=== PATIENT | male | born 1960 | race Caucasian/White ===

== ENCOUNTER 2016-06-30 06:59 | Emergency (ER) | payer BC, OTHER ==
--- NOTE | 2016-06-30 08:35 | EDDOCDS ---
Physician Documentation [facility] Name: Christine Shea Age: 56 yrs Sex: Male : 1960 Arrival Date: 06/30/2016 Time: 06:59 Bed I3 / M3 Private MD: Disposition: 06/30/16 08:25 Discharged to Home/Self Care. Impression: Postprocedural urethral stricture, male, Intraoperative and postprocedural complications and disorders of genitourinary system, not elsewhere classified. - Condition is Stable. - Discharge Instructions: Dysuria. - Medication Reconciliation, Local Pharmacy Hours form. - Follow up: [facility] Urology - [facility] clinic; When: As soon as possible; Reason: Worsening of conditions. - Problem is new. - Symptoms are unchanged. Historical: - Allergies: SULFA (SULFONAMIDES); Codeine Sulfate; ''Adhesives''; - Home Meds: 1. Lopressor 50 mg Oral tab once daily (Last dose: 06/29/2016 19:00) 2. nitroglycerin 0.4 mg SL subl 1 tab as needed 3. Prilosec 40 mg Oral cpDR 1 cap as needed 4. Trileptal 300 mg oral tab daily (Last dose: 06/29/2016 19:00) 5. Pyridium 100 mg Oral tab 1 tab as needed (Last dose: 06/30/2016 04:00) 6. ramipril 5 mg Oral cap 1 cap once daily (Last dose: 06/29/2016 19:00) 7. Cialis 20 mg oral tab 1 tab as needed 8. Flomax 0.4 mg Oral cp24 twice a day (Last dose: 06/30/2016) 9. Takes Plavix 75mg daily, stopped 9 days ago for prostate biopsy 10. An unknown antiobiotic BID, last dose last night - PMHx: Hypertension; Elevated PSA with BPH; - PSHx: Right rotator cuff repair 2016; Left knee arthroscopic surgery; - Social history: Smoking status: Patient states was never smoker of tobacco. No barriers to communication noted, The patient speaks fluent Dutch. - Family history: Not pertinent. - : The pt / caregiver states he / she is not on anticoagulants. The pt / caregiver states he / she is on anticoagulants: Plavix. Home medication list is obtained from the patient. - Exposure Risk Screening:: None identified. Vital Signs: 06/30 07:23 BP 164 / 87; Pulse 82; Resp 16; Temp 96.7(O); Pulse Ox 98% on R/A; Weight 113.4 kg / dwg 250 lbs; Height 6 ft. 0 in. (182.88 cm); Pain 8/10; 08:33 BP 154 / 85; Pulse 100; Resp 18; Temp 97.4(O); Pulse Ox 94% on R/A; Pain 3/10; nb2 07:23 Body Mass Index 33.91 (113.40 kg, 182.88 cm) [facility] MDM: 07:32 Bladder Scan please ordered. btw 07:37 Urinalysis Ordered. EDMS 07:37 Urine Culture Ordered. EDMS 07:42 Financial registration complete. 08:08 Urinalysis Reviewed. btw Signatures: Dispatcher [employer] Shade Gardner RN RN dwg Soledad Gustafson Reg Reg lg Robie, Kathleen, RN RN kr3 Royer Nance PA PA btw MTDD
--- NOTE | 2016-06-30 08:35 | EDDOCDS ---
Nurse's Notes [facility] Name: Christine Shea Age: 56 yrs Sex: Male : 1960 Arrival Date: 06/30/2016 Time: 06:59 Bed I3 / M3 Private MD: Diagnosis: Postprocedural urethral stricture, male;Intraoperative and postprocedural complications and disorders of genitourinary system, not elsewhere classified Presentation: 06/30 07:09 Presenting complaint: Patient states: Difficulty voiding since having a biopsy of dwg prostate yesterday at [facility]. Denies blood or clots in urine, states voids small amounts more frequently. Adult Sepsis Screening: The patient does not have new or worsening altered mentation. Patient's respiratory rate is less than 22. Systolic blood pressure is greater than 100. Patient has a qSOFA score of 0- Negative Sepsis Screen. Suicide/Homicide risk assessment- the patient denies having any suicidal and/or homicidal ideations and does not present with any other emotional, behavioral or mental health complaints. Status: Patient is not a human service worker or dependent. Transition of care: patient was not received from another setting of care. 07:09 Acuity: FABY Level 3 dwg 07:09 Method Of Arrival: Walkin/Carried/Asstd dwg Triage Assessment: 07:23 General: Appears in no apparent distress. Pain: Pain currently is 8 out of 10 on a pain dwg scale. Pt Declines HIV testing. Historical: - Allergies: SULFA (SULFONAMIDES); Codeine Sulfate; ''Adhesives''; - Home Meds: 1. Lopressor 50 mg Oral tab once daily (Last dose: 06/29/2016 19:00) 2. nitroglycerin 0.4 mg SL subl 1 tab as needed 3. Prilosec 40 mg Oral cpDR 1 cap as needed 4. Trileptal 300 mg oral tab daily (Last dose: 06/29/2016 19:00) 5. Pyridium 100 mg Oral tab 1 tab as needed (Last dose: 06/30/2016 04:00) 6. ramipril 5 mg Oral cap 1 cap once daily (Last dose: 06/29/2016 19:00) 7. Cialis 20 mg oral tab 1 tab as needed 8. Flomax 0.4 mg Oral cp24 twice a day (Last dose: 06/30/2016) 9. Takes Plavix 75mg daily, stopped 9 days ago for prostate biopsy 10. An unknown antiobiotic BID, last dose last night - PMHx: Hypertension; Elevated PSA with BPH; - PSHx: Right rotator cuff repair 2015; Left knee arthroscopic surgery; - Social history: Smoking status: Patient states was never smoker of tobacco. No barriers to communication noted, The patient speaks fluent Niuean. - Family history: Not pertinent. - : The pt / caregiver states he / she is not on anticoagulants. The pt / caregiver states he / she is on anticoagulants: Plavix. Home medication list is obtained from the patient. - Exposure Risk Screening:: None identified. Screenin:38 Screening information is obtained from the patient. Fall risk: No risks identified. kr3 Assistance ADL's: requires no assistance with activities of daily living. Abuse/DV Screen: The patient / caregiver reports he/she is: not in a situation that causes fear, pain or injury. Nutritional screening: No deficits noted. Advance Directives: Currently, there is no health care proxy. home support is adequate. Assessment: 07:37 General: Appears in no apparent distress, comfortable, Behavior is cooperative. kr3 Neurological: No deficits noted. Respiratory: Respiratory effort is even, unlabored. : Reports pain when urinates and not voiding as usual. Derm: Skin is pink, warm & dry. 08:33 Reassessment: Patient appears in no apparent distress at this time. kr3 Vital Signs: 07:23 BP 164 / 87; Pulse 82; Resp 16; Temp 96.7(O); Pulse Ox 98% on R/A; Weight 113.4 kg; [facility] Height 6 ft. 0 in. (182.88 cm); Pain 8/10; 08:33 BP 154 / 85; Pulse 100; Resp 18; Temp 97.4(O); Pulse Ox 94% on R/A; Pain 3/10; nb2 07:23 Body Mass Index 33.91 (113.40 kg, 182.88 cm) [facility] Vitals: 07:23 Log In Time: June 30, 2016 at 07:01. [facility] ED Course: 07:01 Patient visited by Carmen Jarrett Reg. hs2 07:01 Patient moved to Waiting hs2 07:07 Patient moved to Triage 1 dwg 07:13 Triage Initiated dwg 07:26 Patient moved to I3 / M3 dwg 07:27 Royer Nance PA is PHCP. btw 07:27 Saniya Garcia MD is Attending Physician. btw 07:27 Patient visited by Royer Nance PA. btw 07:38 The patient / caregiver is instructed regarding the plan of care and ED course. Patient kr3 has correct armband on for positive identification. Bed in low position. Call light in reach. Side rails up X 1. 07:39 Urine Culture Sent. kr3 07:39 Urinalysis Sent. kr3 07:39 No procedures done that require assistance. Bladder Scan completed Results: greater kr3 than 200. 08:24 [facility]rology [facility] is Referral Physician. btw 08:33 Patient visited by Elza Navas. nb2 08:33 No IV's were initiated during this patient's visit. kr3 Order Results: Lab Order: Urinalysis; SPEC'M 06/30/16 07:38 Test: APPEARANCE, URINE; Value: CLEAR; Range: CLEAR; Status: F Test: COLOR, URINE; Value: JG; Range: YELLOW; Status: F Test: PH,URINE; Value: 6.0; Range: 5.0-9.0; Units: UNITS; Status: F Test: SPECIFIC GRAVITY URINE AUTO; Value: 1.020; Range: 1.002-1.035; Status: F Test: PROTEIN, URINE AUTO; Value: NEGATIVE; Range: NEGATIVE; Units: mg/dL; Status: F Test: GLUCOSE, URINE (UA) AUTO; Value: NEGATIVE; Range: NEGATIVE; Units: mg/dL; Status: F Test: KETONE, URINE AUTO; Value: NEGATIVE; Range: NEGATIVE; Units: mg/dL; Status: F Test: UROBILINOGEN, URINE AUTO; Value: 2.0; Range: 0.0-2.0; Abnormal: Above high normal; Units: mg/dL; Status: F Test: BILIRUBIN, URINE AUTO; Value: NEGATIVE; Range: NEGATIVE; Status: F Test: NITRITE, URINE AUTO; Value: POSITIVE; Range: NEGATIVE; Status: F Test: LEUKOCYTE ESTERASE, URINE AUTO; Value: NEGATIVE; Range: NEGATIVE; Status: F Test: BLOOD, URINE BLOOD; Value: 3+; Range: NEGATIVE; Abnormal: Above high normal; Status: F Test: WBC, URINE AUTO; Value: 4; Range: 0-3; Abnormal: Above high normal; Units: /HPF; Status: F Test: RBC, URINE AUTO; Value: TNTC; Range: 0-3; Abnormal: Above high normal; Units: /HPF; Status: F Test: BACTERIA, URINE AUTO; Value: NEGATIVE; Range: NEGATIVE; Status: F Test: SQUAMOUS EPITHELIAL CELL UR AU; Value: 0; Range: 0-6; Units: /HPF; Status: F Test: MUCUS, URINE; Value: SMALL; Range: NEGATIVE; Status: F Test: HYALINE CAST, URINE AUTO; Value: 0; Range: 0-1; Units: /LPF; Status: F Outcome: 08:25 Discharge ordered by Provider. bt 08:33 Discharge Assessment: patient administered narcotics - no. The following High Risk kr3 Discharge criteria are identified: None. Discharged to home ambulatory. Condition: stable. Discharge instructions given to patient, Instructed on discharge instructions, follow up and referral plans. Demonstrated understanding of instructions, Pt was receptive of discharge instructions/ teaching. No special radiology studies were completed. Property sent home with patient. 08:34 Patient left the ED. kr3 Signatures: Shade Betancur, RN RN susieg Jaylyn Negrete RN RN kr3 Royer Nance PA PA btw Carmen Jarrett, Reg Reg hs2 Elza Navas2 MTDD
--- NOTE | 2016-07-02 09:34 | EDDOCDS ---
Nurse's Notes [facility] Name: Christine Shea Age: 56 yrs Sex: Male : 1960 Arrival Date: 06/30/2016 Time: 06:59 Bed I3 / M3 Private MD: Diagnosis: Postprocedural urethral stricture, male;Intraoperative and postprocedural complications and disorders of genitourinary system, not elsewhere classified Presentation: 06/30 07:09 Presenting complaint: Patient states: Difficulty voiding since having a biopsy of dwg prostate yesterday at [facility]. Denies blood or clots in urine, states voids small amounts more frequently. Adult Sepsis Screening: The patient does not have new or worsening altered mentation. Patient's respiratory rate is less than 22. Systolic blood pressure is greater than 100. Patient has a qSOFA score of 0- Negative Sepsis Screen. Suicide/Homicide risk assessment- the patient denies having any suicidal and/or homicidal ideations and does not present with any other emotional, behavioral or mental health complaints. 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 Transition of care: patient was not received from another setting of care. 07:09 Acuity: FABY Level 3 dwg 07:09 Method Of Arrival: Walkin/Carried/Asstd dwg Triage Assessment: 07:23 General: Appears in no apparent distress. Pain: Pain currently is 8 out of 10 on a pain dwg scale. Pt Declines HIV testing. Historical: - Allergies: SULFA (SULFONAMIDES); Codeine Sulfate; ''Adhesives''; - Home Meds: 1. Lopressor 50 mg Oral tab once daily (Last dose: 06/29/2016 19:00) 2. nitroglycerin 0.4 mg SL subl 1 tab as needed 3. Prilosec 40 mg Oral cpDR 1 cap as needed 4. Trileptal 300 mg oral tab daily (Last dose: 06/29/2016 19:00) 5. Pyridium 100 mg Oral tab 1 tab as needed (Last dose: 06/30/2016 04:00) 6. ramipril 5 mg Oral cap 1 cap once daily (Last dose: 06/29/2016 19:00) 7. Cialis 20 mg oral tab 1 tab as needed 8. Flomax 0.4 mg Oral cp24 twice a day (Last dose: 06/30/2016) 9. Takes Plavix 75mg daily, stopped 9 days ago for prostate biopsy 10. An unknown antiobiotic BID, last dose last night - PMHx: Hypertension; Elevated PSA with BPH; - PSHx: Right rotator cuff repair 2015; Left knee arthroscopic surgery; - Social history: Smoking status: Patient states was never smoker of tobacco. No barriers to communication noted, The patient speaks fluent Indonesian. - Family history: Not pertinent. - : The pt / caregiver states he / she is not on anticoagulants. The pt / caregiver states he / she is on anticoagulants: Plavix. Home medication list is obtained from the patient. - Exposure Risk Screening:: None identified. Screenin:38 Screening information is obtained from the patient. Fall risk: No risks identified. kr3 Assistance ADL's: requires no assistance with activities of daily living. Abuse/DV Screen: The patient / caregiver reports he/she is: not in a situation that causes fear, pain or injury. Nutritional screening: No deficits noted. Advance Directives: Currently, there is no health care proxy. home support is adequate. Assessment: 07:37 General: Appears in no apparent distress, comfortable, Behavior is cooperative. kr3 Neurological: No deficits noted. Respiratory: Respiratory effort is even, unlabored. : Reports pain when urinates and not voiding as usual. Derm: Skin is pink, warm & dry. 08:33 Reassessment: Patient appears in no apparent distress at this time. kr3 Vital Signs: 07:23 BP 164 / 87; Pulse 82; Resp 16; Temp 96.7(O); Pulse Ox 98% on R/A; Weight 113.4 kg; [facility] Height 6 ft. 0 in. (182.88 cm); Pain 8/10; 08:33 BP 154 / 85; Pulse 100; Resp 18; Temp 97.4(O); Pulse Ox 94% on R/A; Pain 3/10; nb2 07:23 Body Mass Index 33.91 (113.40 kg, 182.88 cm) [facility] Vitals: 07:23 Log In Time: June 30, 2016 at 07:01. [facility] ED Course: 07:01 Patient visited by Carmen Jarrett Reg. hs2 07:01 Patient moved to Waiting hs2 07:07 Patient moved to Triage 1 dwg 07:13 Triage Initiated dwg 07:26 Patient moved to I3 / M3 dwg 07:27 Royer Nance PA is PHCP. btw 07:27 Saniya Garcia MD is Attending Physician. btw 07:27 Patient visited by Royer Nance PA. btw 07:38 The patient / caregiver is instructed regarding the plan of care and ED course. Patient kr3 has correct armband on for positive identification. Bed in low position. Call light in reach. Side rails up X 1. 07:39 Urine Culture Sent. kr3 07:39 Urinalysis Sent. kr3 07:39 No procedures done that require assistance. Bladder Scan completed Results: greater kr3 than 200. 08:24 [facility] is Referral Physician. btw 08:33 Patient visited by Elza Navas. nb2 08:33 No IV's were initiated during this patient's visit. kr3 08:53 [facility] Payment Agreement was scanned into [employer] and attached to record. lg 15:02 T-Sheet-- Draft Copy was scanned into [employer] and attached to record. gb Order Results: Lab Order: Urinalysis; SPEC'M 06/30/16 07:38 Test: APPEARANCE, URINE; Value: CLEAR; Range: CLEAR; Status: F Test: COLOR, URINE; Value: JG; Range: YELLOW; Status: F Test: PH,URINE; Value: 6.0; Range: 5.0-9.0; Units: UNITS; Status: F Test: SPECIFIC GRAVITY URINE AUTO; Value: 1.020; Range: 1.002-1.035; Status: F Test: PROTEIN, URINE AUTO; Value: NEGATIVE; Range: NEGATIVE; Units: mg/dL; Status: F Test: GLUCOSE, URINE (UA) AUTO; Value: NEGATIVE; Range: NEGATIVE; Units: mg/dL; Status: F Test: KETONE, URINE AUTO; Value: NEGATIVE; Range: NEGATIVE; Units: mg/dL; Status: F Test: UROBILINOGEN, URINE AUTO; Value: 2.0; Range: 0.0-2.0; Abnormal: Above high normal; Units: mg/dL; Status: F Test: BILIRUBIN, URINE AUTO; Value: NEGATIVE; Range: NEGATIVE; Status: F Test: NITRITE, URINE AUTO; Value: POSITIVE; Range: NEGATIVE; Status: F Test: LEUKOCYTE ESTERASE, URINE AUTO; Value: NEGATIVE; Range: NEGATIVE; Status: F Test: BLOOD, URINE BLOOD; Value: 3+; Range: NEGATIVE; Abnormal: Above high normal; Status: F Test: WBC, URINE AUTO; Value: 4; Range: 0-3; Abnormal: Above high normal; Units: /HPF; Status: F Test: RBC, URINE AUTO; Value: TNTC; Range: 0-3; Abnormal: Above high normal; Units: /HPF; Status: F Test: BACTERIA, URINE AUTO; Value: NEGATIVE; Range: NEGATIVE; Status: F Test: SQUAMOUS EPITHELIAL CELL UR AU; Value: 0; Range: 0-6; Units: /HPF; Status: F Test: MUCUS, URINE; Value: SMALL; Range: NEGATIVE; Status: F Test: HYALINE CAST, URINE AUTO; Value: 0; Range: 0-1; Units: /LPF; Status: F Lab Order: Urine Culture; SPEC'M 06/30/16 07:38 Test: URINE CULTURE; Value: <EXTERNAL COMMENT eCWMed> FULL REPORT IN LAB NOTES (eCW and Medent).; Status: F Test: URINE CULTURE; Value: URINE CULTURE RESULT NO GROWTH; Status: F Outcome: 08:25 Discharge ordered by Provider. btw 08:33 Discharge Assessment: patient administered narcotics - no. The following High Risk kr3 Discharge criteria are identified: None. Discharged to home ambulatory. Condition: stable. Discharge instructions given to patient, Instructed on discharge instructions, follow up and referral plans. Demonstrated understanding of instructions, Pt was receptive of discharge instructions/ teaching. No special radiology studies were completed. Property sent home with patient. 08:34 Patient left the ED. kr3 Signatures: Shade Betancur, RN RN dwg Phyllis Goncalves, Reg Reg gb Soledad Gustafson, Reg Reg lg Jaylyn Negrete RN RN kr3 Royer Nance PA PA btw Carmen Jarrett, Reg Reg hs2 Elza Navas2 Chart Complete MTDD
--- NOTE | 2016-07-02 09:34 | EDDOCDS ---
Physician Documentation [facility] Name: Christine Shea Age: 56 yrs Sex: Male : 1960 Arrival Date: 06/30/2016 Time: 06:59 Bed I3 / M3 Private MD: Disposition: 06/30/16 08:25 Discharged to Home/Self Care. Impression: Postprocedural urethral stricture, male, Intraoperative and postprocedural complications and disorders of genitourinary system, not elsewhere classified. - Condition is Stable. - Discharge Instructions: Dysuria. - Medication Reconciliation, Local Pharmacy Hours form. - Follow up: [facility] Urology - [facility] clinic; When: As soon as possible; Reason: Worsening of conditions. - Problem is new. - Symptoms are unchanged. Historical: - Allergies: SULFA (SULFONAMIDES); Codeine Sulfate; ''Adhesives''; - Home Meds: 1. Lopressor 50 mg Oral tab once daily (Last dose: 06/29/2016 19:00) 2. nitroglycerin 0.4 mg SL subl 1 tab as needed 3. Prilosec 40 mg Oral cpDR 1 cap as needed 4. Trileptal 300 mg oral tab daily (Last dose: 06/29/2016 19:00) 5. Pyridium 100 mg Oral tab 1 tab as needed (Last dose: 06/30/2016 04:00) 6. ramipril 5 mg Oral cap 1 cap once daily (Last dose: 06/29/2016 19:00) 7. Cialis 20 mg oral tab 1 tab as needed 8. Flomax 0.4 mg Oral cp24 twice a day (Last dose: 06/30/2016) 9. Takes Plavix 75mg daily, stopped 9 days ago for prostate biopsy 10. An unknown antiobiotic BID, last dose last night - PMHx: Hypertension; Elevated PSA with BPH; - PSHx: Right rotator cuff repair 2016; Left knee arthroscopic surgery; - Social history: Smoking status: Patient states was never smoker of tobacco. No barriers to communication noted, The patient speaks fluent Pashto. - Family history: Not pertinent. - : The pt / caregiver states he / she is not on anticoagulants. The pt / caregiver states he / she is on anticoagulants: Plavix. Home medication list is obtained from the patient. - Exposure Risk Screening:: None identified. Vital Signs: 06/30 07:23 BP 164 / 87; Pulse 82; Resp 16; Temp 96.7(O); Pulse Ox 98% on R/A; Weight 113.4 kg / dwg 250 lbs; Height 6 ft. 0 in. (182.88 cm); Pain 8/10; 08:33 BP 154 / 85; Pulse 100; Resp 18; Temp 97.4(O); Pulse Ox 94% on R/A; Pain 3/10; nb2 07:23 Body Mass Index 33.91 (113.40 kg, 182.88 cm) dw MDM: 07:32 Bladder Scan please ordered. btw 07:37 Urinalysis Ordered. EDMS 07:37 Urine Culture Ordered. EDMS 07:42 Financial registration complete. lg 08:08 Urinalysis Reviewed. btw 08:53 [facility] Payment Agreement was scanned into [employer] and attached to record. lg 15:02 T-Sheet-- Draft Copy was scanned into [employer] and attached to record. gb Signatures: Dispatcher [employer] Shade Gardner, RN RN dwg Phyllis Goncalves, Reg Reg gb Soledad Gustafson, Reg Reg lg Jaylyn Negrete,RN RN kr3 Royer Nance, MACRINA PA btw The chart was reviewed and I authenticate all verbal orders and agree with the evaluation and treatment provided.Attachments: 08:53 [facility] Payment Agreement lg 15:02 T-Sheet-- Draft Copy gb Chart Complete MTDD
--- NOTE | 2016-07-02 09:34 | EDDOCDS ---
Physician Documentation [facility] Name: Christine Shea Age: 56 yrs Sex: Male : 1960 Arrival Date: 06/30/2016 Time: 06:59 Bed I3 / M3 Private MD: Disposition: 06/30/16 08:25 Discharged to Home/Self Care. Impression: Postprocedural urethral stricture, male, Intraoperative and postprocedural complications and disorders of genitourinary system, not elsewhere classified. - Condition is Stable. - Discharge Instructions: Dysuria. - Medication Reconciliation, Local Pharmacy Hours form. - Follow up: [facility] Urology - [facility] clinic; When: As soon as possible; Reason: Worsening of conditions. - Problem is new. - Symptoms are unchanged. Historical: - Allergies: SULFA (SULFONAMIDES); Codeine Sulfate; ''Adhesives''; - Home Meds: 1. Lopressor 50 mg Oral tab once daily (Last dose: 06/29/2016 19:00) 2. nitroglycerin 0.4 mg SL subl 1 tab as needed 3. Prilosec 40 mg Oral cpDR 1 cap as needed 4. Trileptal 300 mg oral tab daily (Last dose: 06/29/2016 19:00) 5. Pyridium 100 mg Oral tab 1 tab as needed (Last dose: 06/30/2016 04:00) 6. ramipril 5 mg Oral cap 1 cap once daily (Last dose: 06/29/2016 19:00) 7. Cialis 20 mg oral tab 1 tab as needed 8. Flomax 0.4 mg Oral cp24 twice a day (Last dose: 06/30/2016) 9. Takes Plavix 75mg daily, stopped 9 days ago for prostate biopsy 10. An unknown antiobiotic BID, last dose last night - PMHx: Hypertension; Elevated PSA with BPH; - PSHx: Right rotator cuff repair 2016; Left knee arthroscopic surgery; - Social history: Smoking status: Patient states was never smoker of tobacco. No barriers to communication noted, The patient speaks fluent Japanese. - Family history: Not pertinent. - : The pt / caregiver states he / she is not on anticoagulants. The pt / caregiver states he / she is on anticoagulants: Plavix. Home medication list is obtained from the patient. - Exposure Risk Screening:: None identified. Vital Signs: 06/30 07:23 BP 164 / 87; Pulse 82; Resp 16; Temp 96.7(O); Pulse Ox 98% on R/A; Weight 113.4 kg / dwg 250 lbs; Height 6 ft. 0 in. (182.88 cm); Pain 8/10; 08:33 BP 154 / 85; Pulse 100; Resp 18; Temp 97.4(O); Pulse Ox 94% on R/A; Pain 3/10; nb2 07:23 Body Mass Index 33.91 (113.40 kg, 182.88 cm) dw MDM: 07:32 Bladder Scan please ordered. btw 07:37 Urinalysis Ordered. EDMS 07:37 Urine Culture Ordered. EDMS 07:42 Financial registration complete. lg 08:08 Urinalysis Reviewed. btw 08:53 [facility] Payment Agreement was scanned into [employer] and attached to record. lg 15:02 T-Sheet-- Draft Copy was scanned into [employer] and attached to record. gb Signatures: Dispatcher [employer] Shade Gardner, RN RN dwg Phyllis Goncalves, Reg Reg gb Soledad Gustafson, Reg Reg lg Jaylyn Negrete,RN RN kr3 Royer Nance, MACRINA PA btw The chart was reviewed and I authenticate all verbal orders and agree with the evaluation and treatment provided.Attachments: 08:53 [facility] Payment Agreement lg 15:02 T-Sheet-- Draft Copy gb Chart Complete MTDD
== END 2016-06-30 08:34 | disposition home or self-care (01) ==
LOC: M ED 06:59
DX: R30.0 Dysuria (principal); Z98.890 Other specified postprocedural states; I10 Essential (primary) hypertension; N40.0 Benign prostatic hyperplasia without lower urinary tract symptoms; Z79.899 Other long term (current) drug therapy; Z79.01 Long term (current) use of anticoagulants; Z88.2 Allergy status to sulfonamides; Z88.5 Allergy status to narcotic agent; Z91.048 Other nonmedicinal substance allergy status

== ENCOUNTER → 2017-02-18 | Outpatient (CLI) | payer BC, OTHER ==
[~2017-02-18] MED LIST: MACR100C43 PO; METO50TA7 PO; OXYB5TAB10 PO; PHEN200T22 PO; PLAV1TAB2 PO; RAMI10CA PO; REPA1.7I SC; TRIL1TAB PO; ZOFR4TAB3 PO
--- NOTE | 2017-02-18 14:43 | REP ---
SCROTAL ULTRASOUND: HISTORY: Left testicle swelling. The right testis measures 3.8 x 2 x 2.9 cm. The left testis measures 3.8 x 2 x 3 cm. The right epididymis measures 5.6 mm. The left epididymis measures 11.1 mm. The left epididymis is heterogeneous in echogenicity. There is increased flow in the left epididymis. There is no hydrocele or mass. IMPRESSION: Findings consistent with left epididymitis. Signed by Conor Dos Santos MD 02/18/2017 03:10 P
== END ==
LOC: M RAD 12:32
PROVIDERS: ATTEND Physician Assistant Surgical
DX: N45.1 Epididymitis (principal)

== ENCOUNTER 2017-03-31 21:31 | Emergency (ER) | payer BC, OTHER ==
[~2017-03-31] VITALS: Ht 182.9 cm; Wt 113.6 kg
[2017-03-31] MEDS ORDERED: PLAV1TAB2 PO (21:41)
[2017-03-31] MEDS ORDERED: METO50TA7 PO (21:41)
[2017-03-31] MEDS ORDERED: RAMI10CA PO (21:41)
[2017-03-31] MEDS ORDERED: TRIL1TAB PO (21:41)
[2017-03-31] MEDS ORDERED: PHEN200T22 PO (21:41)
[2017-03-31] MEDS ORDERED: MACR100C43 PO (21:41)
[2017-03-31] MEDS ORDERED: NS 1,000 ML IV ONE (22:15)
[2017-03-31] MEDS ORDERED: ONDANSETRON 4MG/2ML VIAL (J2405) IV ONE (22:15)
[2017-03-31] MEDS: MORPHINE 4 MG/ML 1ML SYRINGE IV PRN ×2 (22:16→22:43)
[2017-03-31 22:30] LABS: BASO # 0.1 10^3/uL (0.0-0.2); BASO % 0.6 % (0.0-1.0); EOS # 0.3 10^3/uL (0.0-0.50); IMMATURE GRANULOCYTE % 0.3 % (0-0); LYMPH % 22.2 % (24.0-44.0); MEAN CORPUSCULAR HEMOGLOBIN 30.1 pg (27.0-33.0); MEAN CORPUSCULAR HGB CONC 34.1 g/dl (32.0-36.5); MEAN CORPUSCULAR VOLUME 88.3 fl (80.0-96.0); MONO # 0.6 10^3/uL (0.0-0.8); MONO % 7.3 % (0.0-5.0); NEUTROPHILS # 5.9 10^3/uL (1.8-7.7); NEUTROPHILS % 66.6 % (36.0-66.0); PLATELET COUNT, AUTOMATED 304 10^3/uL (150-450); RED CELL DISTRIBUTION WIDTH 12.2 % (11.5-14.5); WHITE BLOOD COUNT 8.8 10^3/uL (4.0-10.0)
[2017-03-31 22:52] LABS: ANION GAP 10 MEQ/L (8-16); BLOOD UREA NITROGEN 20 MG/DL (7-18); CALCIUM LEVEL 9.6 MG/DL (8.5-10.1); CARBON DIOXIDE LEVEL 25 MEQ/L (21-32); CHLORIDE LEVEL 108 MEQ/L (98-107); CREATININE FOR GFR 0.99 MG/DL (0.70-1.30); GLOMERULAR FILTRATION RATE > 60.0 (>56); GLUCOSE, FASTING 136 MG/DL (70-105); POTASSIUM SERUM 4.3 MEQ/L (3.5-5.1); SODIUM LEVEL 143 MEQ/L (136-145)
[2017-03-31] MEDS ORDERED: ZOFR4TAB3 PO (23:43)
[2017-04-01] MEDS ORDERED: LIDOCAINE 2% JELLY 30 ML TOP ONE
[2017-04-01 00:57] VITALS: BP 125/68
[2017-04-01 00:59] LABS: MICROSCOPIC INDICATED? MAN YES (NO)
[2017-04-01 01:08] LABS: RBC, URINE TNTC /hpf (0-3)
[2017-04-01 01:14] LABS: SQUAMOUS EPITHELIAL CELL URINE SMALL AMOUNT /hpf (SMALL AMT)
[2017-04-01 01:19] LABS: BACTERIA, URINE SMALL AMOUNT; HYALINE CAST, URINE NONE SEEN /lpf (0-1)
[2017-04-01 01:20] LABS: MICROSCOPIC EXAM PERFORMED
[2017-04-01 01:21] LABS: GRANULAR CAST, URINE 0-1 /lpf
[2017-04-01] MEDS ORDERED: NORCO 5/325MG TABLET (BULK FOR ED) PO ONE (01:30)
== END 2017-04-01 01:52 | disposition home or self-care (01) ==
LOC: M ED 21:31
DX: R33.9 Retention of urine, unspecified (principal); I10 Essential (primary) hypertension; N40.1 Benign prostatic hyperplasia with lower urinary tract symptoms; Z85.46 Personal history of malignant neoplasm of prostate; Z95.5 Presence of coronary angioplasty implant and graft; Z79.899 Other long term (current) drug therapy; Z79.01 Long term (current) use of anticoagulants; Z88.5 Allergy status to narcotic agent; Z88.2 Allergy status to sulfonamides; Z88.8 Allergy status to other drugs, medicaments and biological substances; L23.1 Allergic contact dermatitis due to adhesives
CPT/HCPCS: 51702; 80048; 81000; 83605; 85025; 87040; 87086; 96374; 96375; 99284; J2405

== ENCOUNTER 2017-04-02 18:06 | Emergency (ER) | payer BC, OTHER ==
[~2017-04-02] VITALS: Ht 182.9 cm; Wt 113.6 kg
[~2017-04-02 18:06] MED LIST changes: -OXYB5TAB10 PO; -REPA1.7I SC
[2017-04-02 20:11] VITALS: BP 133/81
== END 2017-04-02 20:12 | disposition home or self-care (01) ==
LOC: M ED 19:06
DX: R33.9 Retention of urine, unspecified (principal); T83.038A Leakage of other urinary catheter, initial encounter; Z85.46 Personal history of malignant neoplasm of prostate; Y92.89 Other specified places as the place of occurrence of the external cause; Y93.89 Activity, other specified; Y99.9 Unspecified external cause status

== ENCOUNTER 2017-04-04 05:16 | Emergency (ER) | payer BC, OTHER ==
[2017-04-04] MEDS ORDERED: REPA1.7I SC (05:40)
[2017-04-04] MEDS ORDERED: OXYB5TAB10 PO ×2 (07:51→09:35)
[2017-04-04 08:25] LABS: ANION GAP 5 MEQ/L (8-16); BLOOD UREA NITROGEN 14 MG/DL (7-18); CALCIUM LEVEL 8.6 MG/DL (8.5-10.1); CARBON DIOXIDE LEVEL 28 MEQ/L (21-32); CHLORIDE LEVEL 108 MEQ/L (98-107); CREATININE FOR GFR 1.01 MG/DL (0.70-1.30); GLOMERULAR FILTRATION RATE > 60.0 (>56); GLUCOSE, FASTING 137 MG/DL (70-105); POTASSIUM SERUM 4.3 MEQ/L (3.5-5.1); SODIUM LEVEL 141 MEQ/L (136-145)
[2017-04-04 09:27] VITALS: BP 144/83
== END 2017-04-04 09:46 | disposition home or self-care (01) ==
LOC: M ED 05:16
DX: R30.0 Dysuria (principal); Z85.46 Personal history of malignant neoplasm of prostate

== ENCOUNTER 2017-10-10 15:00 | Emergency (ER) | payer BC, OTHER | END 2017-10-10 15:31 | disposition left against medical advice (07) | LOC: M ED 15:00 | DX: S09.90XA Unspecified injury of head, initial encounter (principal); Z53.21 Procedure and treatment not carried out due to patient leaving prior to being seen by health care provider ==

== ENCOUNTER → 2019-10-24 | Outpatient (REF) | payer OTHER ==
[~2019-10-24] MED LIST changes: +OXYB5TAB10 PO; -RAMI10CA PO; +RAMI1CAP26 PO; +REPA140I SC; +ZOFR4TAB14 PO; -ZOFR4TAB3 PO
== END ==
LOC: M LAB REF 17:11
PROVIDERS: ATTEND Physician Assistant
DX: M54.5 Low back pain (principal); R30.0 Dysuria

== ENCOUNTER → 2020-07-31 | Outpatient (CLI) | payer BC, OTHER ==
--- NOTE | 2020-07-31 12:42 | REP ---
INDICATION: PAIN LEFT HIP AFTER FALL 2 WEEKS AGO COMPARISON: None. TECHNIQUE: AP and frog-lateral views of the hip FINDINGS: Generalized age-related changes include subtle increased sclerosis to the acetabulum with minimal joint space narrowing. No further overt osteoarthritic or significant degenerative changes are appreciated. No evidence for acute or healed injury. Surrounding soft tissues are normal. IMPRESSION: Mild generalized age-related changes. No evidence for fracture or dislocation. <Electronically signed by Casa Troncoso > 07/31/20 [id number]
== END ==
LOC: M RAD 12:20
PROVIDERS: ATTEND Physician Assistant
DX: M25.552 Pain in left hip (principal)

== ENCOUNTER → 2021-11-21 | Outpatient (REF) | payer BC, OTHER | LOC: M LAB REF 13:00 | PROVIDERS: ATTEND Physician Assistant Medical | DX: R50.9 Fever, unspecified (principal) ==

== ENCOUNTER → 2024-09-23 | Outpatient (CLI) | payer MEDICARE, BC ==
[~2024-09-23] MED LIST changes: +CLOP75TA99 PO; -OXYB5TAB10 PO; +OXYB5TAB14 PO; -PLAV1TAB2 PO; +RAMI10CA64 PO; -RAMI1CAP26 PO
[2024-09-23 15:28] LABS: BASO % 0.5 % (0.0-1.0); EOS % 0.6 % (0.0-3.0); HEMOGLOBIN 16.2 g/dl (13.5-17.5); LYMPH # 1.9 10^3/uL (1.5-5.0); LYMPH % 28.7 % (24.0-44.0); MEAN CORPUSCULAR HEMOGLOBIN 30.2 pg (27.0-33.0); MEAN CORPUSCULAR HGB CONC 34.5 g/dl (32.0-36.5); MEAN CORPUSCULAR VOLUME 87.7 fl (80.0-96.0); MONO # 0.5 10^3/uL (0.0-0.8); MONO % 6.9 % (2.0-8.0); NEUTROPHILS # 4.1 10^3/uL (1.5-8.5); PLATELET COUNT, AUTOMATED 217 10^3/uL (150-450); RED BLOOD COUNT 5.36 10^6/uL (4.30-6.10); WHITE BLOOD COUNT 6.5 10^3/uL (4.0-10.0)
[2024-09-23 16:03] LABS: ALKALINE PHOSPHATASE 100 U/L (40-129); ALT/SGPT 26 U/L (7.0-40); AST/SGOT 11 U/L (<34); BILIRUBIN,TOTAL 0.5 MG/DL (0.3-1.2); BLOOD UREA NITROGEN 11 MG/DL (9-23); CALCIUM LEVEL 10.2 MG/DL (8.3-10.6); CARBON DIOXIDE LEVEL 26 MMOL/L (20-31); CHLORIDE LEVEL 107 MMOL/L (98-107); CHOLESTEROL LEVEL 140 MG/DL (<200); CHOLESTEROL RISK RATIO 4.44 (<5); CREATININE FOR GFR 0.73 MG/DL (0.70-1.30); GLOMERULAR FILTRATION RATE > 90.0 (>49); GLUCOSE, FASTING 117 MG/DL (74-106); HDL CHOLESTEROL 31.5 MG/DL (>40); LDL CHOLESTEROL 58.1 MG/DL (<100); NON-HDL-C 108.5 MG/DL; POTASSIUM SERUM 4.4 MMOL/L (3.5-5.1); SODIUM LEVEL 144 MMOL/L (136-145); TOTAL PROTEIN 6.8 G/DL (5.7-8.2); TRIGLYCERIDES LEVEL 252 MG/DL (<150)
[2024-09-23 17:12] LABS: HEMOGLOBIN A1c 7.1 % (4.0-6.0)
== END ==
LOC: M LAB 14:32
PROVIDERS: ATTEND Internal Medicine Cardiovascular Disease
DX: I10 Essential (primary) hypertension (principal); E78.5 Hyperlipidemia, unspecified; E11.9 Type 2 diabetes mellitus without complications; N28.89 Other specified disorders of kidney and ureter

== ENCOUNTER → 2024-09-23 | Outpatient (CLI) | payer MEDICARE, BC ==
[2024-09-23 16:05] LABS: BLOOD UREA NITROGEN 11 MG/DL (9-23); CARBON DIOXIDE LEVEL 27 MMOL/L (20-31); CHLORIDE LEVEL 107 MMOL/L (98-107); CREATININE FOR GFR 0.72 MG/DL (0.70-1.30); GLOMERULAR FILTRATION RATE > 90.0 (>49); GLUCOSE, FASTING 117 MG/DL (74-106); POTASSIUM SERUM 4.5 MMOL/L (3.5-5.1); SODIUM LEVEL 143 MMOL/L (136-145)
== END ==
LOC: M LAB 14:35
DX: N28.89 Other specified disorders of kidney and ureter (principal)

== ENCOUNTER → 2024-09-26 | Outpatient (CLI) | payer MEDICARE ==
[~2024-09-26] MED LIST changes: +AMLO1TAB24; +DULA4.5P; +GABA-1490 PO; +HYDR-3713 PO; +ISOVUE-370 76% 100ML VIAL As Ordered ONE; +MELO15TA28; +NITR0.4S14
== END ==
LOC: M RAD 08:21
PROVIDERS: ATTEND Urology
DX: N28.89 Other specified disorders of kidney and ureter (principal)
CPT/HCPCS: 74170; Q9967